=== PATIENT | male | born 1945 | race Caucasian/White ===

== ENCOUNTER 2016-03-15 09:32 | Day surgery (SDC) | payer OTHER ==
[2016-03-08 17:28] VITALS: BMI 38.0
[~2016-03-15 09:32] MED LIST: CYCLOPENTOLATE HCL 1% OPHTH SOLN 2 ML BOTTLE OD SCH; FLURBIPROFEN 0.03% OPHTH SOLN 2.5 ML BOTTLE OD SCH; GENTAMICIN SULFATE 0.3% OPHTHALMIC (EYE DROPS) 5ML BOTTLE OD SCH; PHENYLEPHRINE 2.5% OPHTH SOLN 15 ML BOTTLE OD SCH; TROPICAMIDE 1% OPHTH SOLN 15 ML BOTTLE OD SCH
[2016-03-15] MEDS ORDERED: CYCLOPENTOLATE HCL 1% OPHTH SOLN 2 ML BOTTLE ONE (10:05)
[2016-03-15] MEDS ORDERED: FLURBIPROFEN 0.03% OPHTH SOLN 2.5 ML BOTTLE ONE (10:05)
[2016-03-15] MEDS ORDERED: GENTAMICIN SULFATE 0.3% OPHTHALMIC (EYE DROPS) 5ML BOTTLE ONE (10:05)
[2016-03-15] MEDS ORDERED: PHENYLEPHRINE 2.5% OPHTH SOLN 15 ML BOTTLE ONE (10:06)
[2016-03-15] MEDS ORDERED: TROPICAMIDE 1% OPHTH SOLN 15 ML BOTTLE ONE (10:06)
[2016-03-15] MEDS ORDERED: BACITRACIN/POLYMYXIN OPH OINT 3.5 GM TUBE ONE (10:23)
[2016-03-15] MEDS ORDERED: LIDOCAINE HCL/PF 2% SDV 5ML VIAL ONE (10:23)
[2016-03-15] MEDS ORDERED: TETRACAINE 0.5% OPHTH SOLN 2 ML BOTTLE ONE (10:24)
[2016-03-15] MEDS ORDERED: ACETYLCHOLINE 1:100 INTRA-OCUL 20 MG/2 ML KIT ONE (10:24)
[2016-03-15] MEDS ORDERED: BUPIVACAINE HCL/PF 0.5% (5MG/ML) 10 ML VIAL ONE (10:24)
[2016-03-15] MEDS ORDERED: POVIDONE-IODINE 5% OPHTHALMIC PREP 30 ML SOLUTION ONE (10:24)
[2016-03-15] MEDS ORDERED: ACETAMINOPHEN 325 MG TABLET (FP) PO PRN ×2 (10:28→11:53)
[2016-03-15] MEDS ORDERED: BSS (NA/CA/MG/K) BALANCED SALT SOLUTION OPHTH SOLN 15 ML BOTTLE ONE ×2 (11:19→11:30)
[2016-03-15 12:07] VITALS: TEMP 97.8
[2016-03-15 12:29] VITALS: BP 127/76; PULSE 67
--- NOTE | 2016-03-15 14:23 | OP ---
DATE OF OPERATION: 03/15/2016 PREOPERATIVE DIAGNOSIS: Cataract, right eye. POSTOPERATIVE DIAGNOSIS: Cataract, right eye. PROCEDURE: Cataract extraction via phacoemulsification with insertion of posterior chamber lens implant, right eye. SURGEON: Richar Doran MD [employer]HEMAT[employer] TEACHER: Shoshana Henry MD ANESTHESIA: Regional with sedation. COMPLICATIONS: None. ESTIMATED BLOOD LOSS: Less than 1 mL. DESCRIPTION OF PROCEDURE: The patient was identified in the holding area. After all risks, benefits, and alternatives were explained to the patient, informed consent was obtained. The right eye was marked with a marking pen. The patient then entered the operating room on an eye stretcher. After a formal time-out was performed, a 3-cc injection of equal parts of 2% lidocaine with epinephrine and 0.5% Marcaine was given around the right eye. The patient was then prepped and draped in the usual sterile fashion. An eyelid speculum was placed beneath the eyelids of the right eye. A superotemporal incision was created using a 15-degree blade followed by viscoelastic injection into the anterior chamber. A 2.4-mm keratome blade was then used to make an inferotemporal incision followed by a 360-degree continuous curvilinear capsulorrhexis performed with a bent cystotome and Utrata forceps. Hydrodissection was performed with balanced saline solution on a cannula. Phacoemulsification was then introduced to disassemble and remove the nucleus completely. Irrigation/aspiration was then used to remove any remaining cortical material from the eye. The capsular bag was then refilled using viscoelastic. An Eric model SN60WF with a power of 15.0 diopters, serial number [id number] was inspected and found to be defect-free and injected into the capsular bag. The anterior chamber was reformed using balanced saline solution. Intracanal injections of Miochol and Miostat were then given. Upon inspection, the inferotemporal wound was leaking. A 10-0 nylon interrupted suture was then placed at that position, which completely sealed the wound without any further leaks. The anterior chamber was deep. The lens was perfectly centered in its appropriate position in the capsular bag. The pupil was round and the eye had adequate pressure. Topical antibiotics were administered to the right eye. The right eye was then patched and shielded. The patient tolerated the procedure well and left the operating room in stable condition to follow up in the eye clinic tomorrow morning at 9:00. RICHAR DORAN M.D. [id number]
== END 2016-03-15 12:40 | disposition home or self-care (01) ==
LOC: FASU 09:32
PROVIDERS: ATTEND Ophthalmology
PROC: 08RJ3JZ Replacement of Right Lens with Synthetic Substitute, Percutaneous Approach (ICD-10-PCS; principal; 2016-03-15 11:09)
DX: H26.8 Other specified cataract (principal)

== ENCOUNTER 2016-05-17 06:23 | Day surgery (SDC) | payer OTHER ==
[2016-05-04 12:01] VITALS: BMI 38.0
[2016-05-17] MEDS: PHENYLEPHRINE 2.5% OPHTH SOLN 15 ML BOTTLE ONE ×5 (07:15→07:35)
[2016-05-17] MEDS ORDERED: BACITRACIN/POLYMYXIN OPH OINT 3.5 GM TUBE ONE (07:15)
[2016-05-17] MEDS: CYCLOPENTOLATE HCL 1% OPHTH SOLN 2 ML BOTTLE ONE ×5 (07:15→07:35)
[2016-05-17] MEDS ORDERED: LIDOCAINE HCL/PF 2% SDV 5ML VIAL ONE (07:15)
[2016-05-17] MEDS: TROPICAMIDE 1% OPHTH SOLN 15 ML BOTTLE ONE ×5 (07:15→07:35)
[2016-05-17] MEDS ORDERED: BETAXOLOL HCL 0.25% OPHTHALMIC 10 ML DROPSBTL ONE (07:15)
[2016-05-17] MEDS: GENTAMICIN SULFATE 0.3% OPHTHALMIC (EYE DROPS) 5ML BOTTLE ONE ×5 (07:15→07:35)
[2016-05-17] MEDS: FLURBIPROFEN 0.03% OPHTH SOLN 2.5 ML BOTTLE ONE ×5 (07:15→07:35)
[2016-05-17] MEDS ORDERED: TETRACAINE 0.5% OPHTH SOLN 2 ML BOTTLE ONE (07:16)
[2016-05-17] MEDS ORDERED: BUPIVACAINE HCL/PF 0.5% (5MG/ML) 10 ML VIAL ONE (07:16)
[2016-05-17] MEDS ORDERED: BSS (NA/CA/MG/K) BALANCED SALT SOLUTION OPHTH SOLN 15 ML BOTTLE ONE (07:16)
[2016-05-17] MEDS ORDERED: NEO/POLYMYX B SULF/DEXAMETH OPHTHALMIC 5ML BOTTLE ONE (07:16)
[2016-05-17] MEDS ORDERED: ACETYLCHOLINE 1:100 INTRA-OCUL 20 MG/2 ML KIT ONE (07:16)
[2016-05-17] MEDS ORDERED: POVIDONE-IODINE 5% OPHTHALMIC PREP 30 ML SOLUTION ONE (07:31)
[2016-05-17] MEDS ORDERED: MIDAZOLAM HCL 2 MG/2 ML SINGLE DOSE VIAL ONE (07:53)
[2016-05-17] MEDS ORDERED: FLURBIPROFEN 0.03% OPHTH SOLN 2.5 ML BOTTLE OS SCH (08:00)
[2016-05-17] MEDS ORDERED: CYCLOPENTOLATE HCL 1% OPHTH SOLN 2 ML BOTTLE OS SCH (08:00)
[2016-05-17] MEDS ORDERED: GENTAMICIN SULFATE 0.3% OPHTHALMIC (EYE DROPS) 5ML BOTTLE OS SCH (08:00)
[2016-05-17] MEDS ORDERED: TROPICAMIDE 1% OPHTH SOLN 15 ML BOTTLE OS SCH (08:00)
[2016-05-17] MEDS ORDERED: PHENYLEPHRINE 2.5% OPHTH SOLN 15 ML BOTTLE OS SCH (08:00)
[2016-05-17] MEDS ORDERED: ACETAMINOPHEN 325 MG TABLET (FP) PO PRN (08:51)
[2016-05-17 09:04] VITALS: TEMP 97.7
[2016-05-17 10:15] VITALS: BP 131/71; PULSE 66
--- NOTE | 2016-05-17 21:16 | OP ---
DATE OF OPERATION: 05/17/2016 PREOPERATIVE DIAGNOSIS: Cataract, left eye. POSTOPERATIVE DIAGNOSIS: Cataract, left eye. PROCEDURE: Cataract extraction via phacoemulsification with insertion of posterior chamber lens implant, left eye. SURGEON: Richar Doran MD CHRONIC MANAGER: Shoshana Henry MD ANESTHESIA: Regional with sedation. SPECIMENS: None. COMPLICATIONS: None. ESTIMATED BLOOD LOSS: Less than 1 mL. PROCEDURE: The patient was identified in the holding area. After all risks, benefits and alternatives were explained to the patient, informed consent was obtained. The left eye was marked with a marking pen. The patient then entered the operating room on an eye stretcher. After a formal time-out was performed, an 3 mL injection of equal parts 2% lidocaine with epinephrine and 0.5% Marcaine was given around the left eye. The patient was then prepped and draped in the usual sterile fashion. An eyelid speculum was placed beneath the eyelids of the left eye. An infratemporal paracentesis incision was created using a 15-degree blade followed by viscoelastic injection into the anterior chamber. A 2.4-mm keratome blade was then used to make a supratemporal incision, followed by creation of a continuous curvilinear capsulorrhexis 360 degrees using bent cystotome and Utrata forceps. Hydrodissection was performed with balanced saline solution on a cannula. Phacoemulsification was then introduced to disassemble and remove the nucleus in its entirety. Irrigation/aspiration was then used to remove any remaining cortical material from the eye. The capsular bag was then reformed using viscoelastic. An Eric model SN60WF with a power of 16.0 diopters, serial number [id number] was inspected and found to be defect free and injected into the capsular bag. All remaining viscoelastic was then removed from the eye using irrigation/aspiration. Balanced saline solution was then used to reform the anterior chamber. Intracameral injections of Miochol and Miostat were then given. All wounds were hydrated with balanced saline solution, found to be watertight. The lens was perfectly centered in the capsular bag. The anterior chamber was deep. the eye had an adequate pressure and there was a red reflex present. Topical antibiotic eyedrops and ointment were then placed on the left eye. The eyelid speculum was removed from the left eye. The left eye was then patched and shielded. The patient tolerated the procedure well and left the operating room in stable condition, to follow up the next morning in the eye clinic at 9. RICHAR DORAN M.D. [id number]
== END 2016-05-17 09:45 | disposition home or self-care (01) ==
LOC: FASU 06:23
PROVIDERS: ATTEND Ophthalmology
PROC: 08RK3JZ Replacement of Left Lens with Synthetic Substitute, Percutaneous Approach (ICD-10-PCS; principal; 2016-05-17 08:19)
DX: H26.8 Other specified cataract (principal)